=== PATIENT | male | born 1995 | race Caucasian/White ===

== ENCOUNTER 2025-01-12 12:49 | Emergency (ER) | payer OTHER ==
[~2025-01-12] VITALS: Ht 180.3 cm; Wt 136.1 kg
[2025-01-12] MEDS ORDERED: CEPHALEXIN500 M1 PO (14:55)
[2025-01-12] MEDS ORDERED: CEPHALEXIN 500 MG CAP PO ONE (14:55)
== END 2025-01-12 15:14 | disposition home or self-care (01) ==
LOC: ED 12:49
DX: S01.91XA Laceration without foreign body of unspecified part of head, initial encounter (principal); V49.9XXA Car occupant (driver) (passenger) injured in unspecified traffic accident, initial encounter; Y93.89 Activity, other specified; Y92.488 Other paved roadways as the place of occurrence of the external cause; Y99.8 Other external cause status